=== PATIENT | female | born 1985 | race Caucasian/White ===

== ENCOUNTER 2018-01-08 09:43 | Emergency (ER) | payer OTHER ==
[2018-01-08] MEDS ORDERED: ONDANSETRON HCL IV 4 MG/2 ML VIAL IVP ONE (10:06)
[2018-01-08] MEDS ORDERED: ACETAMINOPHEN 1,000 MG/100 ML BTL IVPB ONE (10:06)
[2018-01-08] MEDS ORDERED: 0.9 % SODIUM CHLORIDE 1,000 ML BAG IV ONE (10:06)
--- NOTE | 2018-01-08 10:10 | Emergency Department Record ---
History of Present Illness - General Chief Complaint: Abdominal Pain Stated Complaint: ABDOMINAL PAIN Time Seen by Provider: 01/08/18 09:50 Source: Patient Mode of Arrival: Ambulatory Limitations: No limitations - History of Present Illness Initial Comments: 32 yo female presents with right sided abdominal pain that started at 11pm. She states the pain is sharp. She has pain in the RUQ and RLQ. She denies any abdominal surgery history. She has nausea and vomited. No fevers. No diarrhea. No dysuria. The pain has been constant. She does not have an appetite at this time. No current PCP. MD Complaint: Abdominal pain Onset/Timin -: Hour(s) Location: RUQ Radiation: LUQ Severity: Moderate Severity scale (1-10): 9 Quality: Dull, Sharp Consistency: Constant Improves With: Nothing Worsens With: Nothing Associated Symptoms: Vomiting - Related Data LMP (females 10-50): Last week Patient : No Home Medications Medication Instructions Recorded Confirmed Last Taken No Home Med [NO HOME MEDS] 01/08/18 01/08/18 Unknown Allergies Allergy/AdvReac Type Severity Reaction Status Date / Time No Known Drug Allergies Allergy Verified 01/08/18 09:46 Travel Screening - Travel/Exposure Within Last 30 Days Have you traveled within the last 30 days?: No - Travel/Exposure Within Last Year Have you traveled outside the [place] in the last year?: No - Additonal Travel Details Have you been exposed to anyone with a communicable illness?: No - Travel Symptoms Symptom Screening: None Review of Systems Constitutional: Denies: Chills, Fever, Malaise, Weakness Eyes: Denies: Eye discharge ENT: Denies: Congestion, Throat pain Respiratory: Denies: Cough Cardiovascular: Denies: Chest pain, Palpitations, Syncope Endocrine: Denies: Fatigue, Polydipsia, Polyuria Gastrointestinal: Reports: Abdominal pain, Nausea, Vomiting. Denies: Diarrhea Genitourinary: Denies: Dysuria, Hematuria Musculoskeletal: Denies: Arthralgia, Back pain, Joint swelling, Myalgia Skin: Denies: Bruising, Change in color, Rash Neurological: Denies: Headache, Numbness, Weakness Psychiatric: Denies: Anxiety Hematological/Lymphatic: Denies: Easy bleeding, Easy bruising, Swollen glands Past Medical History - SOCIAL HISTORY Smoking Status: Never smoker Alcohol Use: Occasional Drug Use: None - RESPIRATORY Hx Respiratory Disorders: No - CARDIOVASCULAR Hx Cardio Disorders: No - NEURO Hx Neuro Disorders: No - GI Hx GI Disorders: No - Hx Genitourinary Disorders: No - ENDOCRINE Hx Endocrine Disorders: No - MUSCULOSKELETAL Hx Musculoskeletal Disorders: No - PSYCH Hx Psych Problems: No - HEMATOLOGY/ONCOLOGY Hx Hematology/Oncology Disorders: No Family Medical History Any Significant Family History?: Yes Hx Diabetes: Grandparents Hx Heart Disease: Grandparents Hx HTN: Grandparents Hx Stroke: Grandparents Physical Exam - General General Appearance: Alert, Oriented x3, Cooperative, No acute distress - Head Head exam: Normal inspection - Eye Eye exam: Normal appearance, PERRL. negative: Conjunctival injection, Scleral icterus - ENT ENT exam: Normal exam, Mucous membranes moist Ear exam: Normal external inspection Nasal Exam: Normal inspection Mouth exam: Normal external inspection Teeth exam: Normal inspection Throat exam: Normal inspection - Neck Neck exam: Normal inspection, Full ROM. negative: Tenderness - Respiratory Respiratory exam: Normal lung sounds bilaterally. negative: Respiratory distress, Rhonchi, Stridor, Wheezes - Cardiovascular Cardiovascular Exam: Regular rate, Normal rhythm, Normal heart sounds - GI/Abdominal GI/Abdominal exam: Soft, Tenderness, Other (Tender RUQ and RLQ on palpation, soft abdomen. Otherwise non tender). negative: Distended, Rebound - Rectal Rectal exam: Deferred - exam: Deferred - Extremities Extremities exam: Normal inspection - Back Back exam: Reports: Normal inspection, Full ROM. Denies: CVA tenderness (R), CVA tenderness (L), Muscle spasm, Tenderness - Neurological Neurological exam: Alert, Normal gait, Oriented X3, Reflexes normal - Psychiatric Psychiatric exam: Normal affect, Normal mood - Skin Skin exam: Dry, Intact, Normal color, Warm Course Vital Signs 01/08/18 09:47 Temperature 98 F Pulse Rate 80 Respiratory 18 Rate Blood Pressure 127/87 Pulse Ox 99 - Reevaluation(s) Reevaluation #1: The vitals were reviewed. No acute changes. 01/08/18 10:15 01/08/18 10:43 CBC was reviewed. Mild increase in WBC at 13 The CMP was unremarkable with normal LFT's and Lipase UA is normal with negative HCG 01/08/18 10:47 The patient was informed regarding the labs. She states her pain and nausea are much improved. 01/08/18 12:42 I SW Radiologist. The CT is consistent with appendicitis. 01/08/18 12:51 I MIHIR Caldera of . He recommended transfer to [facility] [place] MIHIR tSoner of the ED. She accepts the patient for transfer. 01/08/18 13:01 The patient requests transfer by private car. She is stable to transfer by private car. She was sent with transfer packet including CT scan. Medical Decision Making - Lab Data Result diagrams: 01/08/18 09:45 01/08/18 09:45 Disposition Disposition: Transfer Clinical Impression: Appendicitis Qualifiers: Appendicitis type: acute appendicitis Acute appendicitis type: unspecified acute appendicitis type Qualified Code(s): K35.80 - Unspecified acute appendicitis Disposition: Home, Self-Care [place] [facility] [place] For Transfer: Acute Appendicitis Accepting Physician: Herbie/Werner Time Discussed w/Accepting Physician: 12:54 Condition: (2) Stable Additional Instructions: Go directly to the [facility] and tell them you are transfer patient to see Dr Caldera for acute appendicitis DO NOT EAT or DRINK anything Forms: Patient Portal Access Time of Disposition: 12:43 Quality - Quality Measures Quality Measures: N/A - Blood Pressure Screening Does Patient Have Any of the Following: No Blood Pressure Classification: Normal BP Reading Systolic Measurement: 114 Diastolic Measurement: 73 Screening for High Blood Pressure: < Normal BP, F/U Not Required > [[id number]]
[2018-01-08 10:18] LABS: HEMATOCRIT 40.5 % (35.0-47.0); HEMOGLOBIN 13.3 gm/dl (11.6-16.0); MEAN CELL VOLUME 92.7 fl (81-97); MEAN CORPUSCULAR HEMOGLOBIN 30.4 pg (27-33); MEAN CORPUSCULAR HGB CONC 32.8 g/dl (32-36); MEAN PLATELET VOLUME 9.9 fl (7.4-10.4); PLATELET COUNT 374 K/uL (130-400); RED BLOOD COUNT 4.37 M/uL (3.80-5.40); RED CELL DISTRIBUTION WIDTH 13.4 % (11.5-14.5); WHITE BLOOD COUNT W/O DIFF 13.6 K/uL (4.2-12.2)
[2018-01-08 10:19] LABS: URINE APPEARANCE CLEAR; URINE BILIRUBIN NEGATIVE (NEGATIVE); URINE BLOOD TRACE-L (NEGATIVE); URINE COLOR YELLOW; URINE GLUCOSE (UA) NEGATIVE (NEGATIVE); URINE KETONE NEGATIVE (NEGATIVE); URINE LEUKOCYTE ESTERASE NEGATIVE (NEGATIVE); URINE NITRITE NEGATIVE (NEGATIVE); URINE PROTEIN NEGATIVE (NEGATIVE); URINE UROBILINOGEN 0.2 E.U./dL (0.20 - 1.00)
[2018-01-08 10:28] LABS: HCG,QUALITATIVE URINE NEGATIVE (NEGATIVE); PLATELET ESTIMATE NORMAL (NORMAL); URINE BACTERIA FEW; URINE RBC NONE SEEN (NONE SEEN); URINE WBC NONE SEEN (0-2/hpf)
[2018-01-08 10:34] LABS: BLOOD UREA NITROGEN 16 mg/dL (6-20); CREATININE 0.7 mg/dL (0.5-0.9); EST GLOMERULAR FILTRATION RATE > 60 mL/min
[2018-01-08 10:35] LABS: TOTAL PROTEIN 7.3 g/dL (6.6-8.7)
[2018-01-08 10:37] LABS: GLUCOSE,RANDOM 118 mg/dL (74-109)
[2018-01-08 10:39] LABS: ALB/GLOB RATIO 1.4 (1.1-1.8); ALBUMIN 4.3 g/dL (4.0-5.0); ALKALINE PHOSPHATASE 56 U/L (35-104); ALT/SGPT 18 U/L (<33); AST/SGOT 16 U/L (10.0-35.0); LIPASE 29 U/L (13-60)
[2018-01-08] MEDS ORDERED: ERTAPENEM SODIUM 1 G in 0.9 % SODIUM CHLORIDE 100ML 100 ML IVPB ONE (12:41)
[2018-01-08] MEDS ORDERED: 0.9 % SODIUM CHLORIDE 1000ML 1,000 ML IV ONE (12:46)
--- NOTE | 2018-01-09 22:00 | CT SCAN REPORT ---
EXAM: CT SCAN ABDOMEN/PELVIS W CONTRAST HISTORY: RIGHT-SIDED ABDOMINAL PAIN. TECHNIQUE: Contrast-enhanced helical CT examination of the abdomen and pelvis is performed with 100 mL of Omnipaque-300 utilized. COMPARISON: None. FINDINGS: Minor patchy opacity in the dependent lung bases consistent with atelectasis or less likely infiltrate. Minor linear scarring vs. atelectasis also noted within the anterior lung bases. No pleural or pericardial effusion. The liver, spleen, pancreas, adrenal glands, and left kidney are normal in appearance. A too small to characterize hypodense lesion is noted in the posterolateral mid to upper right kidney measuring 7 x 8 mm. This is nonspecific but likely a cyst. No other focal renal lesion is seen. No gross hydronephrosis. The gallbladder is unremarkable and no biliary ductal dilatation is seen. No intraabdominal nor retroperitoneal lymphadenopathy. The vasculature is normal in appearance. There is a dominant follicle within the right ovary measuring 1.8 cm in diameter. No other evidence of pelvic mass, lymphadenopathy, or intrinsic urinary bladder abnormality. Trace free fluid is noted in the cul-de-sac. The appendix appears retrocecal in location. It is mildly distended with associated wall thickening and periappendiceal fat stranding consistent with acute appendicitis. Trace fluid in the right paracolic gutter is questioned. No abscess nor extraluminal air. The bowel is otherwise normal in appearance. No lytic or blastic bone lesion. There are hypertrophic changes of the pubic symphysis. IMPRESSION: 1. MODERATE TO SEVERE ACUTE APPENDICITIS. THE APPENDIX IS RETROCECAL IN LOCATION. THERE IS TRACE FREE FLUID IN THE RIGHT PARACOLIC GUTTER WELL IN THE DEPENDENT PELVIS. 2. DOMINANT FOLLICLE IN THE RIGHT OVARY MEASURING 1.8 CM. 3. TOO SMALL TO CHARACTERIZE HYPODENSE LESION WITHIN THE RIGHT KIDNEY IS NONSPECIFIC BUT LIKELY A CYST. JOB NUMBER: [id number] [facility]
== END 2018-01-08 14:17 | disposition home or self-care (01) ==
LOC: ER 09:43
DX: K35.80 Unspecified acute appendicitis (principal); R11.2 Nausea with vomiting, unspecified
CPT/HCPCS: 99285 ×2; 96365; 96366; 96375; 96361; 83690; 80053; 81001; 81025; 85027; 74177; Q9967; J1335; J2405; J7030